=== PATIENT | male | born 1990 | race Caucasian/White ===

== ENCOUNTER 2018-05-01 18:23 | Emergency (ER) | payer OTHER ==
[2018-05-01 18:54] VITALS: BP 110/67
--- NOTE | 2018-05-01 19:01 | UC ---
Hand/Wrist HPI - HPI Summary HPI Summary: 27 y/o male presents to the urgent care c/o RT index and middle finger pain, swelling and bruising s/p injury w/ 2 pieces of wood at work today at 0900AM. Pt reports he was lifting the big wood pieces when his fingers got caught up in between. Pt states pain is 3/10 w/ pressure and mild numbness over the tip of fingers. He has not difficulty moving his fingers, and denies fever, SOB, chest pain, SOB, chest pain, abdominal pain, N/V/D. Pt states he is UTD w/ tetanus vaccine. - History Of Current Complaint Chief Complaint: UCUpperExtremity Stated Complaint: WC RT MIDDLE FINGER INJURY Time Seen by Provider: 05/01/18 18:59 Hx Obtained From: Patient Onset/Duration: Sudden Onset, Lasting Hours - 9 hrs Severity Initially: Moderate Severity Currently: Moderate Pain Intensity: 3 Pain Scale Used: 0-10 Numeric Character Of Pain: Sharp, Throbbing Aggravating Factor(s): Movement, Lifting, Pulling Alleviating Factor(s): Rest, Ice Associated Signs And Symptoms: Positive: Swelling, Redness, Bruising. Negative : Fever, Weakness, Numbness/Tingling Related History: Dominant Hand Right - Risk Factors Compartment Syndrome Risk Factors: Pain - Allergies/Home Medications Allergies/Adverse Reactions: Allergies Allergy/AdvReac Type Severity Reaction Status Date / Time methylphenidate Allergy Altered Verified 05/01/18 18:52 [From Ritalin] Mental Status PMH/Surg Hx/FS Hx/Imm Hx Previously Healthy: Yes - Pt denies PMHX - Surgical History Surgical History: None - Family History Known Family History: Positive: Cardiac Disease, Hypertension, Diabetes - Social History Occupation: Employed Full-time Lives: With Family Alcohol Use: Occasionally Substance Use Type: None Smoking Status (MU): Heavy Every Day Tobacco Smoker Type: Cigarettes Amount Used/How Often: 1/2 PK DAILY - Immunization History Hx Tetanus, Diphtheria Vaccination: Yes Review of Systems Constitutional: Negative Skin: Bruising - RT middle and index finger s/p injury Eyes: Negative ENT: Negative Respiratory: Negative Cardiovascular: Negative Gastrointestinal: Negative Genitourinary: Negative Motor: Negative Neurovascular: Negative Musculoskeletal: Decreased ROM - RT tip of RT index and middle finger s/p injury , Other: - RT index and middle finger pain s/p injury Neurological: Negative Psychological: Negative Is Patient Immunocompromised?: No All Other Systems Reviewed And Are Negative: Yes Physical Exam - Summary Physical Exam Summary: FINGER Vital Signs Reviewed: Yes General: Well-Appearing, No Pain Distress, Well-Nourished - male w/o any apparent distress Eyes: Positive: Conjunctiva Clear - PERRLA, EOMI ENT: Positive: Normal ENT inspection, Hearing grossly normal, Pharynx normal, TMs normal, Uvula midline Neck: Positive: Supple, Nontender, No Lymphadenopathy Respiratory: Positive: Chest non-tender, Lungs clear, Normal breath sounds, No respiratory distress Cardiovascular: Positive: RRR, No Murmur, Pulses Normal, Brisk Capillary Refill Abdomen Description: Positive: Nontender, No Organomegaly, Soft. Negative: CVA Tenderness (R), CVA Tenderness (L) Bowel Sounds: Positive: Present Musculoskeletal: Positive: Strength Intact, Other: Neurological Exam: Normal Musculoskeletal: Positive: Rt hand is without obvious asymmetry or deformity when compared to the L hand. R #2nd and 3rd distal phalanx with ecchymosis, bruising and swelling on the palmar side w/o any obvious deformity. No bony crepitus. Point tenderness over the both distal phalanges. Decreased ROM of RT 2nd and 3rd DIPJ due to pain. RT 3rd finger nail w/ mild subungal hematoma at the base of nail,and discrete abrasion over the nail cuticle . Motor/sensory function of ulnar, radial, median nerves intact. Ulnar and radial pulses intact. Capillary refill intact. Psychological Exam: Normal Skin Exam: Normal Triage Information Reviewed: Yes Vital Signs: Initial Vital Signs Temp 98.2 F 05/01/18 18:48 Pulse 65 05/01/18 18:48 Resp 17 05/01/18 18:48 BP 110/67 05/01/18 18:48 Pulse Ox 99 05/01/18 18:48 Hand/Wrist Course/Dx - Course Course Of Treatment: 27 y/o male presents to the urgent care c/o RT index and middle finger pain, swelling and bruising s/p injury w/ 2 pieces of wood at work today at 0900AM. Pt reports he was lifting the big wood pieces when his fingers got caught up in between. Pt states pain is 3/10 w/ pressure and mild numbness over the tip of fingers. He has not difficulty moving his fingers, and denies fever, SOB, chest pain, SOB, chest pain, abdominal pain, N/V/D. Pt states he is UTD w/ tetanus vaccine. Hx obtained. Pt w/ R #2nd and 3rd distal phalanx with ecchymosis, bruising and swelling on the palmar side w/o any obvious deformity. No bony crepitus. Point tenderness over the both distal phalanges. Decreased ROM of RT 2nd and 3rd DIPJ due to pain. RT 3rd finger nail w/ mild subungal hematoma at the base of nail and discrete abrasion over the nail cuticle on examination.RT hand X-ray ordered. Impression: Non-displaced fracture of the tuft of distal phlanx of the RT 2nd finger and a Comminuted fracture of the tuft of distal phalanx of the RT 3rd finger. Trephination Procedure : The procedure was explained and consent obtained. [place] protocol performed. Digital nerve block procedure performed with 2mL of [place] 2 % with good anesthesia obtained. Sterile drape and prep were done. Trephination of subungal hematona performed at the basse of RT 3rd fingernail. Discrete blood released and Pt tolerated well procedure w/o any adverse effect. Neurovascular intact. topical Bacitracin applied over the nail area. Wound covered with sterile dressing. RT 3rd finger inmmobilized w/ a finger splint and body taped w/ 2nd finger. There was no neurovascular compromise after splint application; the splint was in good alignment and the pt had good sensation and capillary refill at the time of discharge. Pt given ibuprofen PO at the clinic for pain. Pt Rx Keflex PO and Bacitracin oint. Pt advised to f/u w/ Orthopedic DR Chun in 1-2 days for further treatment. Pt understood and agreed with D/C instructions. Pt Left the clinic ambulating A&OX3 - Differential Dx/Diagnosis Differential Diagnosis/HQI/PQRI: Abrasion, Contusion, Fracture, Infection, Puncture Wound, Sprain, Strain, Subungual Hematoma Provider Diagnoses: 1- RT 2nd and 3rd phalanx pain w/ hematoma s/p injury. 2- Non-displaced fracture of the tuft of distal phlanx of the RT 2nd finger. 3- Comminuted fracture of the tuft of distal phalanx of the RT 3rd finger. 3- RT 3rd fingernail subungal hematoma trephination Discharge - Sign-Out/Discharge Documenting (check all that apply): Patient Departure - D/c home - Discharge Plan Condition: Stable Disposition: HOME Prescriptions: Bacitracin OINTMENT* 1 applic TOPICAL BID #1 tube Cephalexin CAP* [Keflex CAP*] 500 mg PO QID #28 cap Ibuprofen TAB* [Motrin TAB* 800 MG] 800 mg PO Q6H PRN #30 tab PRN Reason: Pain Patient Education Materials: Finger Fracture (ED), Acute Wound Care (ED) Forms: *Work Release Referrals: Ellis Ward MD [Primary Care Provider] - 1 Week Jose Eduardo Chun MD [Medical Doctor] - 1 Day Additional Instructions: 1-Please take Keflex PO as directed and apply Bacitracin oint on RT middle finger as directed. 2- Please take Ibuprofen PO q6-8hrs prn after meals for pain and swelling. 2-Please apply ice, keep your fingers immobilized with the splint. Avoid heavy lifting 3- Please f/u with Orthopedic Dr Chun in 1-2 days further evaluation and treatment. - Billing Disposition and Condition Condition: STABLE Disposition: Home Attestation Statement User Type: Provider - I was available for consult. This patient was seen by the JULISA. The patient was not presented to, seen by, or examined by me. -Yaneth
[2018-05-01] MEDS ORDERED: Ibuprofen TAB* 400 MG PO ONE (19:14)
[2018-05-01] MEDS ORDERED: Lidocaine 1%* 5 ML VIAL INJ ONE (19:23)
--- NOTE | 2018-05-01 19:56 | RAD ---
INDICATION: Right hand injury. TECHNIQUE: 4 views of the right hand were obtained. FINDINGS: There is an oblique nondisplaced fracture extending through the tuft of the distal phalanx of the second finger. The fracture fragments are slightly distracted. In addition, there is a comminuted fracture of the tuft of the distal phalanx of the third finger. The fracture fragments are slightly distracted. Joint spaces appear maintained. IMPRESSION: FRACTURES OF THE [place] OF THE DISTAL PHALANGES OF THE SECOND AND THIRD FINGERS DESCRIBED.
== END 2018-05-01 20:29 | disposition home or self-care (01) ==
LOC: UCCORT 18:23
DX: S62.660A Nondisplaced fracture of distal phalanx of right index finger, initial encounter for closed fracture (principal); S62.632A Displaced fracture of distal phalanx of right middle finger, initial encounter for closed fracture; S60.021A Contusion of right index finger without damage to nail, initial encounter; S60.031A Contusion of right middle finger without damage to nail, initial encounter; W23.0XXA Caught, crushed, jammed, or pinched between moving objects, initial encounter; Y93.89 Activity, other specified; Y92.9 Unspecified place or not applicable; Y99.0 Civilian activity done for income or pay; F17.210 Nicotine dependence, cigarettes, uncomplicated; Z88.8 Allergy status to other drugs, medicaments and biological substances
CPT/HCPCS: 11740; 99212; A9270-GY; G0463